=== PATIENT | female | born 1950 | race Caucasian/White ===

== ENCOUNTER → 2023-08-04 09:47 | Outpatient (REF) | payer MEDICARE, SELFPAY | LOC: MRI 3T 09:47 | PROVIDERS: ATTENDING PHYSICIAN Neurological Surgery; FAMILY PHYSICIAN Family Medicine | DX: I67.1 Cerebral aneurysm, nonruptured (principal) | CPT/HCPCS: 70544 ==

== ENCOUNTER 2023-09-17 18:48 | Emergency (ER) | payer MEDICARE, SELFPAY ==
[2023-09-17 19:26] VITALS: BP 125/88
--- NOTE | 2023-09-17 19:34 | ED.PDOC.TRB ---
ED Provider Triage
-
Patient seen by provider in Triage?: Seen in Triage
*Initial assessment performed in triage to expedite workup*
73 yo female presents after a fall. Tripped while helping her sister at a nursing facility, fell onto her R side. Was initially able to stand, now unable. Pain to R groin/lateral hip.
No obvious shortening or external rotation
Obtain hip/pelvic XR
--- NOTE | 2023-09-17 22:14 | ED.GENMED ---
History of Present Illness
<MARIAM Brunner - Last Filed: 09/17/23 22:40>
General
Chief Complaint: Musculo-Skeletal Complaint
Source: patient
Time Seen by Provider: 09/17/23 22:01
Travel History
Have you had any contact with someone who has COVID-19?: No
Do you have any symptoms of coronavirus? Fever > 100 degrees, chills, cough, shortness of breath, sore throat, loss of taste or smell, muscle aches, or headache?: No
History of Present Illness
History of Present Illness:
73 year old female with hx of osteoporosis and brain aneurysm that is being monitored who presents with R hip pain s/p trip and fall that occurred today at 1500. Pt was walking when her L foot was caught on the spokes of a wheelchair and she
tripped. She does not remember how she landed on the floor or if she hit her head because it happened very quickly. Denies back pain, neck pain, LOC, head ache, dizziness, vision changes. She was ambulatory afterwards and was able to push her sister
around in a wheelchair. She developed R hip and groin soreness when she arrived home. She has not taken anything for the pain. Currently, she denies any pain. Pain is brought on with bearing weight and lying on the R hip. Reports abrasion to R
elbow. Denies chest pain, SOB, abdominal pain, n/v/d, numbness, tingling, urinary/bowel incontinence. Reports hx of R hip surgery s/p fall years ago. She is on Fosamax which she started 5 days ago.
Past History
<MARIAM Brunner - Last Filed: 09/17/23 22:40>
Past History
ED Past Medical History: Other
Review of Systems
<MARIAM Brunner - Last Filed: 09/17/23 22:40>
Review of Systems
Allergies reviewed?: Yes
All Other Systems: ROS reviewed and negative except as documented in HPI and ROS
Constitutional: Reports no symptoms
EENT: Reports no symptoms
Respiratory: Reports no symptoms
Cardiac: Reports no symptoms
ABD/GI: Reports no symptoms
: Reports no symptoms
Musculoskeletal: Reports joint pain (R hip) and other (R groin pain)
Skin: Reports other (abrasion to R elbow)
Neurological: Reports no symptoms
Endocrine: Reports no symptoms
Hematologic/Lymphatic: Reports no symptoms
Psychiatric: Reports no symptoms
Phy Exam
<MARIAM Brunner - Last Filed: 09/17/23 22:40>
General Physical Exam
General Presentation: well appearing and no apparent distress
General age: appears stated age
General Skin: warm and dry
General Habitus: normal
General Mental: alert
General Hydration: appears well hydrated
Cardiovascular Exam
Cardiovascular Exam: regular rate/rhythm, no edema, no gallop, no murmur and normal peripheral pulses
Pulmonary Exam
Pulmonary Exam: lungs clear, no respiratory distress, no rales, no crackles, no rhonchi, no wheezing and no cough
Neurological Exam
Neurological Exam: alert, oriented x3, CN II-XII intact, no motor deficits and no sensory deficits
Musculoskeletal Exam
Musculoskeletal Exam: full ROM (R hip, R knee, neck), neuro vasc intact (RLE) and other (no neck or back tenderness to palpation, no step-offs or deformities)
Skin Exam
Skin Exam: normal color and warm/dry
Psychiatric Exam
Psychiatric Exam: normal mood/affect
Course
<MARIAM Brunner - Last Filed: 09/17/23 22:40>
Orders/Labs/Results
Orders:
Orders
09/17/23 19:33
CR Hip - RT w/wo Pel 2-3 Vw* Urgent
Comment:
Reason For Exam: fall
Include a pelvis x-ray?: Yes
Vital Signs
Initial and Last Documented VS:
Initial Vital Signs
Temp Pulse Resp BP Pulse Ox
98.1 F 73 18 125/88 99
09/17/23 19:26 09/17/23 19:26 09/17/23 19:26 09/17/23 19:26 09/17/23 19:26
Last Documented Vital Signs
Temp Pulse Resp BP Pulse Ox
98.1 F 73 18 125/88 99
09/17/23 19:26 09/17/23 19:26 09/17/23 19:26 09/17/23 19:26 09/17/23 19:26
<Bernarda Burrell MD - Last Filed: 09/17/23 23:04>
Orders/Labs/Results
Orders:
Orders
09/17/23 19:33
CR Hip - RT w/wo Pel 2-3 Vw* Urgent
Comment:
Reason For Exam: fall
Include a pelvis x-ray?: Yes
Vital Signs
Initial and Last Documented VS:
Initial Vital Signs
Temp Pulse Resp BP Pulse Ox
98.1 F 73 18 125/88 99
09/17/23 19:26 09/17/23 19:26 09/17/23 19:26 09/17/23 19:26 09/17/23 19:26
Last Documented Vital Signs
Temp Pulse Resp BP Pulse Ox
98.1 F 73 18 125/88 99
09/17/23 19:26 09/17/23 19:26 09/17/23 19:26 09/17/23 19:26 09/17/23 19:26
<MARIAM Brunner - Last Filed: 09/17/23 22:40>
MDM/Problems Addressed
Differential Diagnosis Includes:
R hip pubic fracture, R hip femur fracture
MDM/Problems Addressed:
73 year old female who presents with R hip pain s/p trip and fall that occurred at 1500 today.
Chronic conditions affecting care: Neurological disorder (brain aneurysm) and Other (osteoporosis)
<MARIAM Brunner - Last Filed: 09/17/23 22:40>
*Critical Care Note
Total Time (30-74mins, 75-104mins- exclusive of procedures): Not Applicable
ED Attending Note
<MARIAM Brunner - Last Filed: 09/17/23 22:40>
-
Portions of this chart may have been created with voice recognition software.� Occasional wrong word or��sound alike� substitutions may have occurred due to the inherent limitations of voice recognition software.
<Bernarda Burrell MD - Last Filed: 09/17/23 23:04>
ED Attending Note
Patient seen and examined by attending physician: Yes
I performed the substantive portion of visit, reviewed & personally made and approve the management plan that is documented in note by myself or JAMI.: Yes
I performed a history and physical exam of patient and discussed management with resident, I reviewed resident's note and agree with documented findings and plan of care.: Yes
ED Attending Note:
73-year-old female who had a trip and fall at approximately 2 or 3 PM today while visiting her sister, and noted thereafter that she has right hip area pain. No head strike, loss of consciousness, neck pain, numbness, tingling, chest pain,
shortness of breath, or other complaints. She did suffer a superficial abrasion to her elbow. She denies nausea or vomiting. She notes discomfort only when she stands or walks. On exam, patient awake alert well-appearing. abdomen soft and
nontender. Patient noted to ambulate here using our walker without difficulty or imbalance. Well-perfused, no swelling, no deformity noted, full range of motion of lower extremities. Patient aware of pelvic fracture, feels comfortable with plan
for discharge, p.o. pain medication, Ortho and PCP follow-up. Discussed with her reasons return to the ER.
Patient presents to the Emergency Department with right hip pain___
Number and Complexity of Problems Addressed at the Encounter
� Chronic conditions affecting care:
� Acute Exacerbation and/or Progression of Chronic Illness:
� Differential Diagnosis includes: But not limited to hip fracture, pelvic fracture, muscle strain, etc.
Amount and/or Complexity of Data to be Reviewed and Analyzed
� I performed an independent evaluation of and my interpretation is:
EKG:
CT:
Xrays: Right pubic ramus fracture
Laboratory Studies:
Other:
� Review of other/old records reveals:
� Clinical information was obtained by an independent historian: Friend who is bedside
� Prescriptions/Medications Considered but not given:
� Further testing considered but not performed:
Risk of Complications and/or Morbidity or Mortality of Patient Management
� Social determinants of health affecting care:
� Discussion with other providers (PCP, Hospitalists, Consultants, etc):
� Escalation of care including admission/observation vs risk of discharge considered:
Discharge Plan
Departure
Patient Disposition: Home (Routine Discharge)
Date of Disposition: 09/17/23
Time of Disposition: 22:53
Patient with high blood pressure during this ER visit?: Yes
Condition: Good
Discharge Problem:
Closed pelvic fracture
Instructions: Pelvic fracture, BLOOD PRESSURE
Prescriptions:
New
acetaminophen-codeine 300-30 mg tablet
1 tab PO BID PRN (Reason: Pain) Qty: 7 0RF
acetaminophen-codeine 300-30 mg tablet
1 tab PO BID PRN (Reason: Pain) Qty: 7 0RF
Referrals:
Sofya Hsu DO [Family Provider] -
Florian Lynch MD [Active] - Next open appointment
Activity Restrictions/Additional Instructions:
IF YOU DEVELOP INCREASING/NEW/PERSISTENT PAIN, NUMBNESS, TINGLING, WEAKNESS, SWELLING, OR OTHER WORRISOME SIGNS, GO TO THE ER IMMEDIATELY!!
Interventions
Interventions:
*Risk Screen - Suicide Last Done: 09/17/23 21:23
*General Assessment Last Done: 09/17/23 21:23
*Neglect/Abuse Screening Last Done: 09/17/23 21:23
ED- Fall Risk Assessment Last Done: 09/17/23 21:23
*ED COVID-19 Vaccine History Last Done: 09/17/23 21:23
ED-Musculoskeletal Assessment Last Done: 09/17/23 21:23
Discharge Date and Time
Print Language: BERMUDIAN
[2023-09-17] MEDS: TYLENOL #3 1 TABLET PO (23:22)
[2023-09-17 23:34] VITALS: BP 122/82
== END 2023-09-17 23:35 | disposition home or self-care (01) ==
LOC: EMR 18:48
PROVIDERS: EMERGENCY PHYSICIAN Emergency Medicine; FAMILY PHYSICIAN Family Medicine
DX: S32.9XXA Fracture of unspecified parts of lumbosacral spine and pelvis, initial encounter for closed fracture (principal); S50.311A Abrasion of right elbow, initial encounter; W01.0XXA Fall on same level from slipping, tripping and stumbling without subsequent striking against object, initial encounter; Y93.01 Activity, walking, marching and hiking; M81.0 Age-related osteoporosis without current pathological fracture
CPT/HCPCS: 99283; 73502

== ENCOUNTER → 2023-11-04 11:09 | Outpatient (REF) | payer MEDICARE, SELFPAY | LOC: WDC 11:09 | PROVIDERS: ATTENDING PHYSICIAN Family Medicine | DX: Z12.31 Encounter for screening mammogram for malignant neoplasm of breast (principal) | CPT/HCPCS: 77063; 77067 ==

== ENCOUNTER → 2024-01-29 11:43 | Outpatient (REF) | payer MEDICARE, SELFPAY | LOC: RCS 11:43 | PROVIDERS: ATTENDING PHYSICIAN Student in an Organized Health Care Education/Training Program; FAMILY PHYSICIAN Family Medicine | DX: Z01.818 Encounter for other preprocedural examination (principal) | CPT/HCPCS: 93005 ==

== ENCOUNTER → 2024-05-30 09:56 | Outpatient (REF) | payer MEDICARE, SELFPAY | LOC: RAD 09:56 | PROVIDERS: ATTENDING PHYSICIAN Internal Medicine Endocrinology, Diabetes & Metabolism; FAMILY PHYSICIAN Family Medicine | DX: E04.2 Nontoxic multinodular goiter (principal) | CPT/HCPCS: 76536 ==

== ENCOUNTER → 2024-10-18 15:06 | Outpatient (REF) | payer MEDICARE, SELFPAY | LOC: RCS 15:06 | PROVIDERS: ATTENDING PHYSICIAN Family Medicine | DX: I10 Essential (primary) hypertension (principal); R60.0 Localized edema; M25.552 Pain in left hip | CPT/HCPCS: 73502; 93005; 93306 ==

== ENCOUNTER → 2024-11-07 10:12 | Outpatient (REF) | payer MEDICARE, SELFPAY | LOC: RAD 10:12 | PROVIDERS: ATTENDING PHYSICIAN Family Medicine | DX: M81.0 Age-related osteoporosis without current pathological fracture (principal); Z12.31 Encounter for screening mammogram for malignant neoplasm of breast | CPT/HCPCS: 77063; 77067; 77080 ==

== ENCOUNTER 2024-12-26 13:06 | Inpatient (IN) | payer MEDICARE, SELFPAY ==
[2024-12-26] VITALS (12 sets, daily range): BP systolic 110–162; BP diastolic 50–90; BMI 22.3; BMI 22.5
--- NOTE | 2024-12-26 10:40 | ED.GENMED ---
History of Present Illness
General
Chief Complaint: Fall
Time Seen by Provider: 12/26/24 10:40
History of Present Illness
History of Present Illness:
FOCUSED PAST MEDICAL HISTORY
- No significant past medical history but does take baby aspirin
REVIEW OF OLD RECORDS
- I reviewed records, the patient had a pelvic fracture in September 2023 seen here in the ER [facility]
Note:
CHIEF COMPLAINT(S)
Left knee pain with inability to straighten and right wrist pain following a fall.
HISTORY OF PRESENT ILLNESS
The patient is a 71-year-old female who presented with left knee pain and right wrist pain following a fall. The patient reported she was walking in her neighborhood when she was startled by a dog barking, causing her to look up and step on a
walnut. This resulted in her twisting her ankle and falling. She was uncertain about which ankle twisted but confirmed the primary injury was to the left knee which she cannot straighten and is painful to the touch. The knee is swollen and exhibits
a deformity.
A Good [employer] attempted to help the patient up, but the knee locked, and she was unable to stand. The patient also mentioned a secondary concern of pain in the right wrist. She has no history of prior knee injuries. Additionally, she noticed an
abrasion on the right knee and right shoulder but denied significant pain in those areas.
The patient denies any known drug allergies. She reported being on baby aspirin for thromboembolic prophylaxis but no other specific chronic conditions affecting current care were discussed. She adamantly states moving the knee is painful and
requests minimal manipulation. The patient was administered a narcotic (Dilaudid) for pain management with plans for further imaging, including X-rays of the wrist and knee, and a CT scan for further evaluation.
PHYSICAL EXAM
- General: Well appearing but appears rather uncomfortable
- Head: No craniofacial trauma
- C-spine: No midline c-spine tenderness; normal AROM of C-spine
- Back: Normal AROM thoracolumbar spine
- HEENT: Moist oral mucosa, no blood
- Cardiovascular: No murmurs, normal heart rate, regular rhythm, No chest wall tenderness
- Pulmonary: No respiratory distress, breath sounds are clear and equal
- Abdomen: Soft with no peritoneal signs, no tenderness
- Neurologic: Excellent strength all extremities, no coordination deficits
- Psychiatric: Appropriate mental status, normal insight and judgement
- Extremities: The patient holds the left knee in near complete flexion and deformity is noted at the left knee, there is also deformity noted at the distal right forearm
- Skin: Abrasions are noted at the right shoulder and right knee however active range of motion at those locations are normal
PLAN
1. Administer IV Dilaudid for pain relief.
2. Obtain X-rays of the left knee and right wrist.
3. Secure a CT scan of the left knee to assess for possible dislocation or other injuries.
4. Consider further pain management interventions based on imaging results.
DIFFERENTIAL DIAGNOSIS
The Differential Diagnosis includes, in no particular order and is not limited to:
1. Knee dislocation
2. Fracture of the left knee
3. Right wrist fracture
4. Meniscal tear
5. Ligamentous injury (ACL/PCL tear)
6. Patellar dislocation
7. Soft tissue injury
8. Sprain of the knee
9. Hemarthrosis
10. Contusion of the knee or wrist
Disposition:
SUMMARY OF ENCOUNTER
The patient, a 71-year-old female, presented to the emergency department with left knee pain and right wrist pain following a fall. The primary injury was to the left knee, which was painful and unable to straighten. Initial examination showed a
swollen and deformed left knee with restricted range of motion. The patient also reported pain in the right wrist. She was administered IV Dilaudid for pain management. Imaging of the patients left knee revealed a patellar fracture with significant
displacement. The right wrist showed obvious deformity, which was reduced under procedural sedation. Due to her advanced age and having fractures in two extremities, I coordinated a consultation with orthopedics and discussed her care with the
hospitalist for potential admission.
DISPOSITION
Admit
ASSESSMENT
The patient has a left patellar fracture with significant displacement and a right wrist fracture, both resulting from a fall.
EMERGENCY TREATMENTS ADMINISTERED
IV Dilaudid was administered for pain relief.
MANAGEMENT OF THE PATIENTS CARE WAS DISCUSSED WITH
Orthopedics (Dr. Forrest) and hospitalist for potential admission.
PLAN
1. Admit patient to the hospital for further management.
2. Consult with orthopedics for surgical intervention or further management of the left knee patellar fracture and right wrist fracture.
3. Continue pain management with appropriate analgesics.
4. Monitor the patients recovery and provide supportive care as needed.
INDEPENDENT REVIEW OF LABS AND INTERPRETATION OF TESTS
- My independent interpretation of the imaging reveals a patellar fracture with significant displacement in the left knee.
- My independent interpretation of the right wrist shows an obvious deformity, consistent with a fracture that was reduced with procedural sedation.
MEDICATION RECONCILIATION
- Fentanyl (administered intranasally by EMS before arrival).
- Dilaudid (administered intravenously in the emergency department for pain).
MEDICAL DECISION MAKING
-Complexity of Data Reviewed: Chronic conditions affecting care [None reported] Knee dislocation, Fracture of the left knee, Right wrist fracture, Meniscal tear, Ligamentous injury (ACL/PCL tear), Patellar dislocation, Soft tissue injury, Sprain of
the knee, Hemarthrosis, Contusion of the knee or wrist.
-Data:
Category 1
Clinical information was obtained from an independent historian during and after the procedures.
Category 2
My independent interpretation of knee and wrist imaging revealed significant fractures.
Category 3
Discussion of management with orthopedics (Dr. Forrest) and hospitalist for potential hospital admission.
-Risk:
Decisions regarding diagnostic testing and procedures with associated risks were undertaken. Admission was considered due to advanced age and multiple fractures.
DIAGNOSIS
Patellar Fracture, Left Knee (S82.051A)
Wrist Fracture, Right (S62.101A)
RADIOLOGY
- X-rays which showed left patellar fracture and right distal radius/ulnar fractures. The right upper extremity fractures are angulated and displaced. Brain CT shows no bleeding
LABS
- White count 9.8, hemoglobin 13.4, sodium low at [address] Marin, he recommends patient should be admitted to medicine and he will discuss with Dr. Lynch to see if we can get her added to the OR schedule at [facility] tomorrow or possibly Thursday for management of both fractures
I discussed case with Dr. Meza
Past History
Past History
ED Past Medical History: Other
Phy Exam
Physical Exam
Physical Exam:
See HPI
Course
Orders/Labs/Results
Orders:
Orders
12/26/24 Breakfast
Regular
12/26/24 10:40
CR Knee - Left 1 Or 2 Views Urgent
Reason For Exam: trauma
CR Wrist - Right Min 3 Views Urgent
Comment:
Reason For Exam: trauma
12/26/24 10:41
CT Head W/o Iv Contrast Urgent
Comment:
Reason For Exam: trauma on baby aspirin
12/26/24 10:46
HYDROmorphone [Dilaudid] 1 mg IV NOW STA
Ondansetron Injectable [Zofran] 4 mg IV NOW STA
12/26/24 10:48
CR Femur - Left Min 2 Vw Urgent
Comment:
Reason For Exam: trauma
12/26/24 10:52
Basic Metabolic Panel Urgent
Complete Blood Count/With Diff Urgent
Serum Osmolality Urgent
Comment: ADD ON
TSH Reflex To Free T4 Urgent
Comment: ADD ON
12/26/24 12:16
Propofol [Diprivan] 20 ml .ROUTE .STK-MED
12/26/24 12:36
EKG [Electrocardiogram (*1)] Routine
Reason for Study: PreOp
12/26/24 12:37
Urinalysis Reflex To Culture Routine
Urine Osmolality Random [Osmolality, Random Urine] Stat
Urine Sodium Stat
12/26/24 12:40
Admit/Transfer Patient As Directed
Co-Sign Provider:
Level of Care: Inpatient admission
Assign to:: Medical/Surgical
Physician / Group: dia
Diagnosis: patella fracture
Reason for Hospitalization: patella fracture
Expected length of stay greater than two midnights?: Yes
ELOS- Estimated Length of Stay in days: 3
I certify the patient meets the requirements for IP care: Yes
12/26/24 12:41
Code Status As Directed
Resuscitation Status: Full Code
PRN Pain Medication Management As Directed
May give lesser potent ordered pain med per pt: Yes
preference::
Protocol:: Medication orders for pain may be administered in a
manner that supports deferring to patient preference
when the pt is:
- Requesting an ordered lesser potent pain medication.
Least to most potent pain medications are defined
as: acetaminophen < NSAID < tramadol < opioids
(morphine, oxycodone, hydromorphone).
- Requesting a lesser dose of the same medication IF
ORDERED.
- Requesting a less intrusive route of administration
if both routes are prescribed by the provider (PO <
IV).
12/26/24 12:45
0.9% Sodium Chloride 1000 ml [Nss] 1,000 ml IV 80 mls/hr
12/26/24 12:47
Knee Immobilizer Left-Treatmen ONCE
Wrist, Right 2 Views CR [CR Wrist - Right Min 2 Views] Urgent
Comment:
Reason For Exam: post reduction portable please
12/26/24 12:49
Add On- LAB Urgent
Tests Added?: serum osmolality, tsh reflex
12/26/24 13:03
ORTHOPEDIC CONSULT Routine
Consulting Provider: Marty Marin
Was physician already notified: Yes
Abnormal Lab Results
12/26/24
10:52
RBC 4.18 L 10^6/uL
(4.20-5.40)
Hct 36.8 L %
(37.0-47.0)
MCH 32.1 H pg
(27.0-31.0)
Absolute Neuts (auto) 6.8 H 10^3/uL
(1.4-6.5)
Absolute Monos (auto) 0.8 H 10^3/uL
(0.1-0.6)
Lymphocytes % 20.0 L %
(20.5-51.1)
Sodium 128 L mmol/L
(135-145)
Chloride 96 L mmol/L
(98-107)
Glucose 121 H mg/dl
(70-99)
12/26/24 10:52
12/26/24 10:52
Vital Signs
Initial and Last Documented VS:
Initial Vital Signs
Temp Pulse Resp BP Pulse Ox
36.8 C 89 16 152/65 100
12/26/24 10:29 12/26/24 10:29 12/26/24 10:29 12/26/24 10:29 12/26/24 10:29
Last Documented Vital Signs
Temp Pulse Resp BP Pulse Ox
36.6 C 70 16 128/63 98
12/26/24 12:40 12/26/24 13:00 12/26/24 13:00 12/26/24 13:00 12/26/24 13:00
Procedures
Moderate Sedation
ASA Risk Score: Class II
Chart and allergies reviewed: Yes
Consent for anesthesia obtained: Yes
Time out completed (validating right patient & procedure): Yes
Moderate Sedation Start Time(when first medication is given): 12:35
History of difficult intubation: No
Airway free of obstruction: Yes
Patient has a gag reflex: Yes
Patient is able to open mouth: Yes
Patient has no dentures: Yes
Patient has no loose teeth: Yes
Medication administered by Provider during Moderate Sedation: IV Propofol (mg)
Total dose administered: 50
Time drug administered: 12:35
Moderate Sedation Procedure End Time: 12:45
Joint/Fracture Reduction
Right Wrist:
Indication for procedure:: Displaced right distal forearm
Consent form signed: Yes
If no, reason: Emergency procedure
Joint reduced: with anesthesia sedation
Anesthesia/sedation: Moderate sedation
Injury was: closed
Further treatement: needs further treatment
Post reduction exam: stable
Capillary Refill: normal
*Pulse Oximetry
SaO2: 100
Oxygen Mode of Delivery: Room air
Patient hypoxic: no
*Critical Care Note
Total Time (30-74mins, 75-104mins- exclusive of procedures): Not Applicable
ED Attending Note
-
Portions of this chart may have been created with voice recognition software.� Occasional wrong word or��sound alike� substitutions may have occurred due to the inherent limitations of voice recognition software.
Discharge Plan
Departure
Patient Disposition: Admit
Date of Disposition: 12/26/24
Time of Disposition: 12:14
Presentation/result/management discussed w/ accepting MD/DO: Hospitalist
Discharge Problem:
Patella fracture
Interventions
Interventions:
*Risk Screen - Suicide Last Done: 12/26/24 10:36
*General Assessment Last Done: 12/26/24 10:36
*Neglect/Abuse Screening Last Done: 12/26/24 10:36
*ED- Fall Risk Assessment Last Done: 12/26/24 10:36
*ED COVID-19 Vaccine History Last Done: 12/26/24 10:36
ED-Musculoskeletal Assessment Last Done: 12/26/24 10:36
ED- Neurological Assessment Last Done: 12/26/24 10:36
ED-Skin Assessment Last Done: 12/26/24 10:36
[2024-12-26] MEDS: DILAUDID 1 MG IV (10:48)
[2024-12-26] MEDS: ZOFRAN 4 MG IV (10:48)
[2024-12-26 11:14] LABS: Hematocrit 36.8 % (37.0-47.0); Hemoglobin 13.4 g/dL (12.0-16.0); Mean Corp Hgb Conc. 36.4 g/dL (33.0-37.0); Mean Corpuscular Volume 88.0 fL (81.0-99.0); Nucleated Red Blood Cells % 0 %; Platelet Count 290 10^3/uL (130-400); Red Cell Dist. Width 12.5 % (11.5-14.5)
[2024-12-26 11:25] LABS: Blood Urea Nitrogen 12 mg/dl (7-17); Calcium 10.0 mg/dl (8.4-10.2); Carbon Dioxide 23 mmol/L (22-30); Chloride 96 mmol/L (98-107); Estimated Creatinine Clearance 67 ml/min; Glucose 121 mg/dl (70-99); Potassium 4.3 mmol/L (3.5-5.1); Sodium 128 mmol/L (135-145); eGFR > 60.00
--- NOTE | 2024-12-26 12:14 | HPS.HSE ---
Family Physician
-
Family Physician: Sofya Hsu
Chief Complaint
-
slipped and fell
History of Present Illness
74 year old with PMH for osteoporosis, carotid stenosis, HTN presented to us s/p fall. she slipped on the walnut and fell with her left leg underneath backwards. she hit her head on the curve. denied dizzy or syncope. denied fever, chills,chest
pain, sob.denied abdominal pain,n,v,d. denied dysuria or hematuria.
plan for right wrist reduction at bedside and plan to fix patella as outpatient.
Medical History
Past Medical History
Past Medical History: Reports Other
Additional Past Medical History:
mitral valve prolapse
throid nodule
goiter
diverticulosis
skin cancer
Past Surgical History: Reports Other
Additional Past Surgical History:
ORIF
Social History
Tobacco: Non-smoker
Alcohol: None
Drug: None
Family History
Family History: Not pertinent
Allergies / Home Medications
Allergies reflects when Allergies were last updated in [facility].
Home Medications with original date entered in [facility]
Allergy/Medication List:
Allergies
Allergy/AdvReac Type Severity Reaction Status Date / Time
NKA - No Known Allergies Allergy Uncoded 08/06/07 09:33
Home Medications
alendronate 70 mg tablet 70 mg PO SA 12/26/24
aspirin 81 mg tablet,delayed release 81 mg PO DAILY 12/26/24
calcium carbonate 500 mg PO BID 12/26/24
cholecalciferol (vitamin D3) 25 mcg (1,000 unit) tablet (Vitamin D3) 25 mcg PO QPM 12/26/24
magnesium 200 mg tablet 200 mg PO QPM 12/26/24
olmesartan 5 mg tablet 2.5 mg PO DAILY 12/26/24
Review of Systems
-
Constitutional: Reports No Symptoms
EENT: Reports No Symptoms
Respiratory: Reports No Symptoms
Cardiac: Reports No Symptoms
Abdomen/GI: Reports No Symptoms
: Reports No Symptoms
Musculoskeletal: Reports Other
Skin: Reports No Symptoms
Neurological: Reports No Symptoms
Endocrine: Reports No Symptoms
Hematologic/Lymphatic: Reports No Symptoms
Psych: Reports No Symptoms
Physical Exam
Vital Signs
Vital Signs
Temp Pulse Resp BP Pulse Ox
98.3 F 89 16 152/65 100
12/26/24 10:29 12/26/24 10:29 12/26/24 10:29 12/26/24 10:12/26/24 10:41
Physical Exam
General: Well Developed, Well Nourished and No Apparent Distress
HEENT: NormoCephalic, Moist mucous membranes and Atraumatic
Respiratory: Clear
Cardiac: S1/S2 and Regular Rhythm; No Murmur or Rub
GI: Soft, Non Tender, Non Distended and Normal Bowel Sounds; No Organomegaly
Rectal: Deferred by Provider
Musculoskeletal: No Clubbing, No Cyanosis and Other (left knee swollen and red)
Skin: No Rash
Neuro: AO x 3 and Nonfocal/grossly intact
Psych: Calm
Laboratory Results
-
12/26/24 10:52
12/26/24 10:52
Data Reviewed
-
Diagnostic Radiology: Report Reviewed by me
CT Scan: Report Reviewed by me
Lab Data: Labs Reviewed by me
Impression/Plan
-
#fall with patella and wrist fracture
- x ray of knee with the impression of ACUTE TRANSVERSE INTRA-ARTICULAR FRACTURE through the center of the PATELLA. Severe proximal distraction of superior patellar fracture fragment with a large 5.6 cm central gap between the 2 fracture fragments.
-head CT with the impression of No CT evidence for acute intracranial hemorrhage or scalp soft tissue hematoma. Mild white matter leukoaraiosis in both cerebral hemispheres.
-wrist x ray pending
-femur x ray with ACUTE TRANSVERSE INTRA-ARTICULAR FRACTURE through the center of the PATELLA.Severe proximal distraction of superior patellar fracture fragment with a large 5.6 cm central gap between the 2 fracture fragments.
-will keep patient NPO after MN for possible patella repair
-right wrist reduced at the bedside
-PT/OT
-tylenol, oxy and Dilaudid prn for pain
-orthopedic consulted
#essential HTN
-olmesartan continued
#hyponatremia likely hypovolemic
-normal saline continued
-urine sodium, osmolality, TSH and UA ordered
#DVT prophylaxis
-scd
#CODE status
-full code
--- NOTE | 2024-12-26 12:32 | W.PN.UPDATE ---
Addendum entered and electronically signed by Ritu Meza MD 12/26/24 15:47:
EKG with NSR. No cardiopulmonary complaints. Good exercise performance status. RCRI score 0, 0.5% risk of MACE. no additional testing indicated prior to OR tomorrow.
Original Note:
Update Note
Progress Note Update
I saw and examined the patient.
The WIRING INSPECTOR Logan's note was reviewed and I agree with the note.
Comment: 74 y/o F, HTN, presents to ER with fall slipping on walnut while walking outside. Mechanism of fall was falling forward with L knee bent backwards with out stretched R hand/R wrist. She hit the ground and had a head impact. Denies any LOC
or prodromal symptoms of SOB, CP or dizziness. Trauma workup in ER showed acute patellar fracture (with proximal distraction of superior fracture fragment) and distal R wrist fracture which ER team reduced in ER. CT head was negative.
Exam:
General: Well Developed, Well Nourished and No Apparent Distress
HEENT: Normocephalic, Moist mucous membranes and Atraumatic
Respiratory: Clear
Cardiac: S1/S2 and Regular Rhythm; No Murmur or Rub
GI: Soft, Non Tender, Non Distended and Normal Bowel Sounds; No Organomegaly
Rectal: Deferred by Provider
Musculoskeletal: No Clubbing, No Cyanosis and Other (left knee swollen and red), RUE reduced and with dressing applied
Skin: No Rash
Neuro: AO x 3 and Nonfocal/grossly intact
Psych: Calm
Assessment: S/p ER reduction of R wrist fracture; formal X-ray reports (pre and post reduction) pending. L patellar fracture with immobilizer in place. Admit inpatient. IV pain control. Orthopedics consulted - will keep NPO p MN for operative repair
(s) pending their eval. Obtain pre-op EKG. AM Labs. continue home meds. Also noted asymptomatic acute hyponatremia, will obtain urine and serum studies, TSH, AM cortisol. provide IVF. Daughter updated at bedside
[2024-12-26] MEDS: NSS 1000 IV (12:53)
--- NOTE | 2024-12-26 14:52 | CM ---
CM reviewed chart and met with pt's daughter in ED, pt was speaking with physician.
Pt lives alone, 2 story home, 2 ROSA from garage, 3 ROSA front door. Has first floor half bath, second floor Bedroom and full bath.
Independent in ADLs, personal care and ambulation at baseline.
Daughter confirms prescription coverage.
PCP: Sofya Hsu
Pharmacy: [facility]
CM will continue to follow for any discharge planning needs.
--- NOTE | 2024-12-26 15:10 | W.PN.UPDATE ---
Update Note
Progress Note Update
Full orthopedic consult dictated:
Patient unfortunately has sustained displaced right distal radius/ulnar fractures and displaced left patella fracture. She is going to require open reduction internal fixation right distal radius fracture and left patellar fracture. She has been
tentatively placed on the operating room schedule for tomorrow. Surgical locations marked and consent signed. N.p.o. after midnight and Ancef on-call to operating room.
[2024-12-26] MEDS: TYLENOL 650 MG PO ×2 (16:59→21:34)
[2024-12-26] MEDS: ROXICODONE 5 MG PO (17:00)
[2024-12-26 18:59] LABS: Urine Character Slightly Cloudy (Clear)
[2024-12-26 19:21] LABS: Urine Squamous Cell 16-20 /LPF (Few)
[2024-12-26 19:22] LABS: Urine Red Blood Cell 0-2 /HPF (0-2); Urine White Cell 0-2 /HPF (0-5)
[2024-12-26] MEDS: REFRESH EYE DROPS (PF) 1 DROPS OPHTH (21:33)
[2024-12-26] MEDS: COLACE 100 MG PO (21:35)
[2024-12-26] MEDS: SENOKOT PO (21:36)
[2024-12-26] MEDS: MELATONIN 5 MG PO (22:46)
[2024-12-27] VITALS (8 sets, daily range): BP systolic 112–142; BP diastolic 42–102
[2024-12-27] MEDS: TYLENOL PO ×2 (00:18→19:30)
[2024-12-27] MEDS: NSS 1000 IV (03:26)
[2024-12-27] MEDS: TYLENOL 650 MG PO ×4 (03:47→20:33)
[2024-12-27 06:39] LABS: Hematocrit 28.9 % (37.0-47.0); Hemoglobin 10.4 g/dL (12.0-16.0); Mean Corp Hgb Conc. 36.0 g/dL (33.0-37.0); Mean Corpuscular Volume 89.2 fL (81.0-99.0); Platelet Count 201 10^3/uL (130-400); Red Cell Dist. Width 12.5 % (11.5-14.5)
[2024-12-27 06:45] LABS: Blood Urea Nitrogen 10 mg/dl (7-17); Calcium 8.5 mg/dl (8.4-10.2); Carbon Dioxide 23 mmol/L (22-30); Chloride 103 mmol/L (98-107); Estimated Creatinine Clearance 68 ml/min; Glucose 94 mg/dl (70-99); Potassium 3.9 mmol/L (3.5-5.1); Sodium 131 mmol/L (135-145); eGFR > 60.00
[2024-12-27 07:14] LABS: Cortisol, Random 5.2 ug/dl
[2024-12-27] MEDS: ASPIR LOW (ENTERIC COATED) 81 MG PO (08:12)
[2024-12-27] MEDS: COLACE 100 MG PO ×2 (08:16→20:33)
[2024-12-27] MEDS: REFRESH EYE DROPS (PF) 1 DROPS OPHTH ×2 (08:16→20:33)
[2024-12-27] MEDS: SENOKOT PO (08:19)
--- NOTE | 2024-12-27 08:23 | W.PN.UPDATE ---
Update Note
Progress Note Update
Ms. Carpio is resting comfortably in bed this morning. She reports her pain is controlled overall. Her right arm is in a sugar tong splint, and she has a knee immobilizer to her left leg. She is scheduled for OR today for right wrist ORIF and left
patella ORIF. NPO until surgery. NWB to RUE. She may be WBAT to her LLE in the knee immobilizer. Pain control prn. Orthopedics will continue to follow along.
--- NOTE | 2024-12-27 09:11 | W.PN.HOSP.TC ---
Addendum entered and electronically signed by Brittany Rosen MD 12/27/24 14:01:
Multiple fractures: Due to a combination of trauma and pathological process due to osteoporosis.
Original Note:
Today's Communication/Plan
-
.
Assessment / Plan
Assessment / Plan
Physical Exam
General: Well Developed, Well Nourished and No Apparent Distress
HEENT: NormoCephalic, Moist mucous membranes and Atraumatic
Respiratory: Clear
Cardiac: S1/S2 and Regular Rhythm; No Murmur or Rub
GI: Soft, Non Tender, Non Distended and Normal Bowel Sounds; No Organomegaly
Rectal: Deferred by Provider
Musculoskeletal: No Clubbing, No Cyanosis and Other (left knee swollen and red)
Skin: No Rash
Neuro: AO x 3 and Nonfocal/grossly intact
Psych: Calm
# Mechanical fall with patella and wrist fracture
- x ray of knee with the impression of ACUTE TRANSVERSE INTRA-ARTICULAR FRACTURE through the center of the PATELLA. Severe proximal distraction of superior patellar fracture fragment with a large 5.6 cm central gap between the 2 fracture fragments.
-head CT with the impression of No CT evidence for acute intracranial hemorrhage or scalp soft tissue hematoma. Mild white matter leukoaraiosis in both cerebral hemispheres.
-wrist x ray pending
-femur x ray with ACUTE TRANSVERSE INTRA-ARTICULAR FRACTURE through the center of the PATELLA.Severe proximal distraction of superior patellar fracture fragment with a large 5.6 cm central gap between the 2 fracture fragments.
-will keep patient NPO for right wrist ORIF and left patella ORIF.
-right wrist reduced at the bedside with splint now
-PT/OT
-Tylenol, oxy and Dilaudid prn for pain
-orthopedic consulted
# Preop evaluation
Patient denies history of heart disease or lung disease. No anginal symptoms. She was walking the outdoor when she tripped and fell.
No history of heart failure. EKG no acute ischemic changes.
No prohibitory factor for surgery, repair of fractures outweigh the risks
#essential HTN
-olmesartan continued
#hyponatremia likely hypovolemic
-normal saline continued
-urine sodium, osmolality, TSH and UA ordered
# Acute blood loss anemia due to fractures.
#DVT prophylaxis
-scd
#CODE status
-full code
Total time spent to see the patient, examine the patient, review data and lab result, discuss treatment plan with patient, nursing staff around 55-minute
Anticipated Discharge: > 48 hours
Subjective/Interval History
-
Date of Service: December 27, 2024
No chest pain
No sob
No fevers
Objective Data
-
Labs:
Laboratory Results
12/27/24
05:42
WBC 5.5
Hgb 10.4 L D
Hct 28.9 L
Plt Count 201 D
Sodium 131 L
Potassium 3.9
Chloride 103
Carbon Dioxide 23
BUN 10
Creatinine 0.5 L
Glucose 94
Calcium 8.5 D
Vital Signs:
Vital Signs
Temp Pulse Resp BP Pulse Ox
98.6 F 62 16 122/54 95
12/26/24 23:00 12/26/24 23:00 12/26/24 23:00 12/26/24 23:00 12/26/24 23:00
I&O
12/26/24 12/27/24 12/28/24
06:59 06:59 06:59
Intake Total 1440 / 1440
Balance 1440 / 1440
--- NOTE | 2024-12-27 11:48 | CM ---
Reviewed the chart notes and spoke with the patient at the bedside. Patient is for OR today for right wrist ORIF and left patella ORIF. CM continues to be available to patient/family and is monitoring medical plan for needs at discharge.
Plan: Discharge plans will depend on the patient's progress. Patient reports lives with spouse who will be able to assist if able to d/c to home.
--- NOTE | 2024-12-27 13:55 | PN.CDI ---
CDI
- -
CDI:
Physician Documentation Request
Admit Date: 12/26/24 13:06
Dear Doctor Jessika,
Patient sustained fall. Found to have acute transverse intra-articular patella fracture.
Per H&P History of osteoporosis
Please provide further specificity regarding the diagnosis of patella fracture fracture:
Etiology
Traumatic
Pathologic due to osteoporosis
Due to a combination of trauma and a pathological process
but the trauma alone would not likely have been sufficient
to cause the fracture
Other- please specify
Use of terms such as suspected, likely, concern for, or probable (associated with a specific diagnosis that is being evaluated, monitored, or treated as if it exists) are acceptable and can be coded in the inpatient setting, when documented at the
time of discharge.
Thank you,
Gerda Light RN, BSN
CDI Specialist
tiger text
Please use your independent medical judgment in providing your response.
--- NOTE | 2024-12-27 13:59 | PN.CDI ---
CDI
- -
CDI:
Physician Documentation Request
Admit Date: 12/26/24 13:06
Dear Doctor Jessika,
Patient sustained fall. Found to have right wrist complete displaced fracture involving the distal radius and ulna.
Per H&P History of osteoporosis
Please provide further specificity regarding the diagnosis of wrist fracture fracture:
Etiology
Traumatic
Pathologic due to osteoporosis
Due to a combination of trauma and a pathological process
but the trauma alone would not likely have been sufficient
to cause the fracture
Other- please specify
Use of terms such as suspected, likely, concern for, or probable (associated with a specific diagnosis that is being evaluated, monitored, or treated as if it exists) are acceptable and can be coded in the inpatient setting, when documented at the
time of discharge.
Thank you,
Gerda Light RN, BSN
CDI Specialist
tiger text
Please use your independent medical judgment in providing your response.
--- NOTE | 2024-12-27 19:05 | PTCARENOTE ---
pt rec'd from [facility] @ 1905; post op ORIF left patella & ORIF right wrist; dressings assessed with production internship; pt AOx3; VSS; IVF per order; bed locked in lowest position; call lea within reach; care ongoing.
[2024-12-27] MEDS: NON-FORMULARY ITEM PO (19:30)
[2024-12-27] MEDS: SENOKOT 17.2 MG PO (20:33)
--- NOTE | 2024-12-27 20:39 | W.IMMPOSTOP ---
Surgical Immed Post Op Note
-
Primary Surgeon: Marty Marin MD
Assisting Surgeon:
Pre-op Diagnosis: left patella fracture
Post-op Diagnosis: left patella fracture
Procedure Performed: ORIF left patella
Anesthesia Type: general
Specimen / Cultures: none
Estimated Blood Loss: 25mL
Complications: none apparent
Operative Findings: well reduced articular surface
Tourniquet time: 112 minutes @ 250 mmHg
Implants: Nazario VariAx2 2mm small fragment plates x3, 4.0mm cannulated screws x2; #2 Fiberwire cerclage
Operative dictation #:[id number]
[2024-12-28] VITALS (7 sets, daily range): BP systolic 125–149; BP diastolic 51–67; PULSE 73–80; O2SAT 100
[2024-12-28] MEDS: ANCEF 5 IV ×2 (00:04→08:37)
[2024-12-28] MEDS: NSS 1000 IV (00:06)
[2024-12-28] MEDS: TYLENOL 650 MG PO ×2 (00:07→04:19)
--- NOTE | 2024-12-28 04:05 | DOWNTIME ---
There was a [employer] Client Shake Out Worker Downtime on 12/28/2024 from 0100 to 12/28/2024 at 0215. Downtime documentation of patient's care, including medication administrations, has been reconciled in the electronic record per guidelines. Refer to the
patient's paper chart under the miscellaneous tab to see printed paper medication records and downtime forms.
--- NOTE | 2024-12-28 07:28 | W.PN.ORTHO ---
Documented by User: Ann Marie Arroyo PA-C 12/28/24 07:34
Today's Communication / Plan
-
74 yo F POD1 ORIF right wrist and left patella performed under the direction of Dr. Lynch and Dr. Marin respectively
--Right wrist:
--NWB to RUE.
--Maintain surgical splint until outpatient follow up at 2 weeks post-op.
--Pain control prn. Ice and elevation for edema control.
--Left knee:
--WBAT to LLE in immobilizer. Maintain immobilizer at all time. No flexion of the left knee. We appreciate the assistance of PT/OT.
--Recommend ASA 325 mg daily x4 weeks for DVT ppx.
--Pain control prn. Ice and elevation for pain and edema control
--Hgb pending this AM. Continue to monitor.
--Maintain surgical dressings until 2 week post-op visit.
--Case management consult for dc planning. It sounds as though patient would like to stay with her daughter upon dc from hospital.
--Orthopedics will continue to follow along.
Assessment
.
Distal Motor Intact: Yes
Dressing:
Clean, dry and intact.
Plan
.
Surgery / Date: ORIF right wrist and left patella
DVT Prophylaxis: Aspirin
Activity:
Out of bed.
PT/OT
Subjective
.
.:
Ms. Carpio is POD1 following her right wrist ORIF performed under the direction of Dr. Lynch and left patella ORIF performed under the direction of Dr. Marin. She is resting comfortably in bed this morning, and reports her symptoms are well
controlled at present.
Vital Signs and Labs
.
Vital Signs and Labs:
Temp Pulse Resp BP Pulse Ox
97.7 F 62 16 132/57 97
12/28/24 03:00 12/28/24 03:00 12/28/24 03:00 12/28/24 03:00 12/28/24 03:00
Physical Exam
-
Directed exam of the right upper extremity reveals post-op splint in place. Expected post-operative edema of the fingers. Patient able to wiggle fingers. Sensation intact to light touch. Capillary refill <2 seconds.
Directed exam of the left lower extremity reveals knee immobilizer and post-operative dressings in place. Calf soft and nontender. Patient able to wiggle toes, plantar and dorsiflex ankle. NVID.

Documented by User: Marty Marin MD 12/28/24 07:58
Today's Communication / Plan
-
74 yo F POD1 ORIF right wrist and left patella performed under the direction of Dr. Lynch and Dr. Marin respectively
--Right wrist:
--NWB to RUE.
--Maintain surgical splint until outpatient follow up at 2 weeks post-op.
--Pain control prn. Ice and elevation for edema control.
--Left knee:
--WBAT to LLE in immobilizer. Maintain immobilizer at all time. 30 degrees flexion of the left knee with physical therapy and for ROM. We appreciate the assistance of PT/OT.
--Recommend ASA 325 mg daily x4 weeks for DVT ppx.
--Pain control prn. Ice and elevation for pain and edema control
--Hgb pending this AM. Continue to monitor.
--Maintain surgical dressings until 2 week post-op visit.
--Case management consult for dc planning. It sounds as though patient would like to stay with her daughter upon dc from hospital.
--Orthopedics will continue to follow along.
--- NOTE | 2024-12-28 08:18 | W.IMMPOSTOP ---
Surgical Immed Post Op Note
-
Late entry.
Surgery performed on 12/27/2024
Primary Surgeon: Cris
Pre-op Diagnosis: Right distal radius and ulna fracture
Post-op Diagnosis: Same
Procedure Performed: Right distal radius and ulna ORIF
Anesthesia Type: General and regional
Specimen / Cultures: None
Estimated Blood Loss: 2cc
Complications: None
Plan:
- NWB RUE through hand and wrist. But, ok to bear weight with the platform walker thru elbow and forearm
- Keep splint until follow up in 10-14 days. Subsequently, she will have a cast
[2024-12-28] MEDS: SENOKOT 17.2 MG PO (08:37)
[2024-12-28] MEDS: REFRESH EYE DROPS (PF) 1 DROPS OPHTH ×2 (08:37→19:56)
[2024-12-28] MEDS: COLACE 100 MG PO (08:37)
[2024-12-28] MEDS: ASPIRIN 325 MG PO (08:38)
[2024-12-28] MEDS: NON-FORMULARY ITEM 2.5 MG PO (08:38)
[2024-12-28 09:07] LABS: Hematocrit 26.6 % (37.0-47.0); Hemoglobin 9.7 g/dL (12.0-16.0); Mean Corp Hgb Conc. 36.5 g/dL (33.0-37.0); Mean Corpuscular Volume 91.4 fL (81.0-99.0); Platelet Count 223 10^3/uL (130-400); Red Cell Dist. Width 12.6 % (11.5-14.5)
--- NOTE | 2024-12-28 09:19 | W.PN.HOSP.TC ---
Today's Communication/Plan
-
Iron therapy
Likely dc in AM
Assessment / Plan
Assessment / Plan
Physical Exam
General: Well Developed, Well Nourished and No Apparent Distress
HEENT: NormoCephalic, Moist mucous membranes and Atraumatic
Respiratory: Clear
Cardiac: S1/S2 and Regular Rhythm; No Murmur or Rub
GI: Soft, Non Tender, Non Distended and Normal Bowel Sounds; No Organomegaly
Rectal: Deferred by Provider
Musculoskeletal: No Clubbing, No Cyanosis and Other (left knee swollen and red)
Skin: No Rash
Neuro: AO x 3 and Nonfocal/grossly intact
Psych: Calm
# Mechanical fall with patella and wrist fracture
s/p Right distal radius and ulna ORIF by Dr Lynch on 12/27
S/P ORIF left patella by DR Ferguson on 12/27
She denies significant discomfort
c/w Tylenol 1 gm TIS
-PT/OT
- oxy and Dilaudid prn for pain
-orthopedic consulted
# Acute blood loss anemia
Start Iron therapy
#essential HTN
-olmesartan continued
# Leukocytosis, reactive
Afebrile
#hyponatremia likely hypovolemic
-normal saline continued
-urine sodium, osmolality, TSH and UA ordered
# Acute blood loss anemia due to fractures.
#DVT prophylaxis
-scd
#CODE status
-full code
Total time spent to see the patient, examine the patient, review data and lab result, discuss treatment plan with patient, daughter, nursing staff around 55-minute
Anticipated Discharge: Within 24 hours
Subjective/Interval History
-
Date of Service: December 28, 2024
She feels well
No significant pain in arm or knee
No chest pain
No sob
Objective Data
-
Labs:
Laboratory Results
12/28/24
08:57
WBC 11.6 H
Hgb 9.7 L
Hct 26.6 L
Plt Count 223
PT Pending
INR Pending
APTT Pending
Sodium Pending
Potassium Pending
Chloride Pending
Carbon Dioxide Pending
BUN Pending
Creatinine Pending
Glucose Pending
Calcium Pending
Vital Signs:
Vital Signs
Temp Pulse Resp BP Pulse Ox
97.7 F 62 16 132/57 97
12/28/24 03:00 12/28/24 03:00 12/28/24 03:00 12/28/24 03:00 12/28/24 03:00
I&O
12/27/24 12/28/24 12/29/24
06:59 06:59 06:59
Intake Total 1440 / 1440 1620 / 1620
Balance 1440 / 1440 1620 / 1620
[2024-12-28 09:25] LABS: INR 1.00; PT 13.7 Sec (11.4-14.6)
[2024-12-28 09:26] LABS: APTT 25.1 Sec (23.4-35.0)
[2024-12-28 09:30] LABS: Blood Urea Nitrogen 7 mg/dl (7-17); Calcium 8.0 mg/dl (8.4-10.2); Carbon Dioxide 24 mmol/L (22-30); Chloride 102 mmol/L (98-107); Estimated Creatinine Clearance 68 ml/min; Glucose 159 mg/dl (70-99); Potassium 4.0 mmol/L (3.5-5.1); Sodium 130 mmol/L (135-145); eGFR > 60.00
[2024-12-28] MEDS: NSS IV (11:36)
[2024-12-28] MEDS: TYLENOL 1000 MG PO ×3 (11:40→23:23)
[2024-12-28] MEDS: FEOSOL 325 MG PO (11:41)
--- NOTE | 2024-12-28 14:53 | CM ---
Addendum entered by Georgina Argueta RN 12/28/24 16:01:
Referral was successfully uploaded into [facility] for [facility]. Per Rowena Forrester Liaison they do services [place].
Original Note:
Reviewed the chart notes and spoke with the patient and her daughter at the bedside. Patient wants to discharge to her daughter's home with [facility] services:
[facility] [facility]
[place] [address]
[facility]N does not service [place], permission to send referral to [facility] received. Attempted, but at this time [facility] is not functioning.
Plan: Discharge to her daughter's home with VN services. VN agency unknown at this time.
[2024-12-28] MEDS: TYLENOL PO (16:52)
[2024-12-28] MEDS: SENOKOT PO (19:57)
[2024-12-28] MEDS: COLACE PO (19:58)
[2024-12-28] MEDS: MELATONIN 5 MG PO (22:29)
--- NOTE | 2024-12-29 07:02 | W.PN.ORTHO ---
Documented by User: Ramesh Delvalle PA-C 12/29/24 07:05
Today's Communication / Plan
-
74 yo F POD2 ORIF right wrist and left patella performed under the direction of Dr. Lynch and Dr. Marin respectively
--Right wrist:
--NWB to RUE.
--Maintain surgical splint until outpatient follow up at 2 weeks post-op.
--Pain control prn. Ice and elevation ( above level of heart) for edema control.
--Left knee:
--WBAT to LLE in immobilizer. Maintain immobilizer at all time. No flexion of the left knee. We appreciate the assistance of PT/OT.
--Recommend ASA 325 mg daily x4 weeks for DVT ppx.
--Pain control prn. Ice and elevation for pain and edema control
--Hgb pending this AM. Continue to monitor.
--Maintain surgical dressings until 2 week post-op visit.
--Case management consult for dc planning. It sounds as though patient would like to stay with her daughter upon dc from hospital.
--Orthopedics to sign off.
Assessment
.
Distal Motor Intact: Yes
Dressing:
Clean, dry and intact.
Plan
.
Surgery / Date: ORIF right wrist and left patella
DVT Prophylaxis: Aspirin
Activity:
Out of bed.
PT/OT
Discharge Plan: Home w/ VN
Subjective
.
.:
Patient resting comfortably.
Vital Signs and Labs
.
Vital Signs and Labs:
Lab Results
12/28/24 08:57
12/28/24 08:57
Temp Pulse Resp BP Pulse Ox
98.2 F 69 18 125/51 100
12/28/24 23:15 12/28/24 23:15 12/28/24 23:15 12/28/24 23:15 12/28/24 23:15
PT 13.7 Sec (11.4-14.6) 12/28/24 08:57
INR 1.00 12/28/24 08:57

Documented by User: Marty Marin MD 12/29/24 08:32
Today's Communication / Plan
-
74 yo F POD2 ORIF right wrist and left patella performed under the direction of Dr. Lynch and Dr. Marin respectively
--Right wrist:
--NWB to RUE.
--Maintain surgical splint until outpatient follow up at 2 weeks post-op.
--Pain control prn. Ice and elevation ( above level of heart) for edema control.
--Left knee:
--WBAT to LLE in kinged knee brace. Maintain hinged knee brace at all time. Brace locked in extension while ambulating, can unlock for 30 degrees ROM with physical therapy. We appreciate the assistance of PT/OT.
--Recommend ASA 325 mg daily x4 weeks for DVT ppx.
--Pain control prn. Ice and elevation for pain and edema control
--Hgb pending this AM. Continue to monitor.
--Maintain surgical dressings until 2 week post-op visit.
--Case management consult for dc planning. It sounds as though patient would like to stay with her daughter upon dc from hospital.
--Orthopedics to sign off.
[2024-12-29 07:30] VITALS: BP 135/53
[2024-12-29 07:56] LABS: Hematocrit 24.6 % (37.0-47.0); Hemoglobin 8.5 g/dL (12.0-16.0); Mean Corp Hgb Conc. 34.6 g/dL (33.0-37.0); Mean Corpuscular Volume 91.8 fL (81.0-99.0); Platelet Count 230 10^3/uL (130-400); Red Cell Dist. Width 12.9 % (11.5-14.5)
[2024-12-29 08:32] LABS: Blood Urea Nitrogen 6 mg/dl (7-17); Calcium 8.4 mg/dl (8.4-10.2); Carbon Dioxide 26 mmol/L (22-30); Chloride 103 mmol/L (98-107); Estimated Creatinine Clearance 68 ml/min; Glucose 93 mg/dl (70-99); Potassium 3.9 mmol/L (3.5-5.1); Sodium 132 mmol/L (135-145); eGFR > 60.00
[2024-12-29] MEDS: SENOKOT PO (08:44)
[2024-12-29] MEDS: COLACE PO (08:44)
[2024-12-29] MEDS: ASPIRIN 325 MG PO (08:44)
[2024-12-29] MEDS: FEOSOL 325 MG PO (08:44)
[2024-12-29] MEDS: REFRESH EYE DROPS (PF) 1 DROPS OPHTH (08:45)
[2024-12-29] MEDS: NON-FORMULARY ITEM 2.5 MG PO (08:45)
[2024-12-29] MEDS: TYLENOL 1000 MG PO (08:45)
--- NOTE | 2024-12-29 08:54 | W.PN.HOSP.TC ---
Today's Communication/Plan
-
dc
Assessment / Plan
Assessment / Plan
Physical Exam
General: Well Developed, Well Nourished and No Apparent Distress
HEENT: NormoCephalic, Moist mucous membranes and Atraumatic
Respiratory: Clear
Cardiac: S1/S2 and Regular Rhythm; No Murmur or Rub
GI: Soft, Non Tender, Non Distended and Normal Bowel Sounds; No Organomegaly
Rectal: Deferred by Provider
Musculoskeletal: No Clubbing, No Cyanosis and Other (left knee swollen and red)
Skin: No Rash
Neuro: AO x 3 and Nonfocal/grossly intact
Psych: Calm
# Mechanical fall with patella and wrist fracture
s/p Right distal radius and ulna ORIF by Dr Lynch on 12/27
S/P ORIF left patella by DR Ferguson on 12/27
She denies significant discomfort
c/w Tylenol for pain, f/w pt and her daughter, agree to use Tramadol if needed
-PT/OT consulted.
- aspirin for DVT prophylaxis.
# Acute blood loss anemia
Started Iron therapy, she did not want IV Iron. Improved, advised to eat more proteins
#essential HTN
-olmesartan continued
# Leukocytosis, reactive
Afebrile
#hyponatremia likely hypovolemic
Improved, advised to eat more proteins
# Acute blood loss anemia due to fractures.
#DVT prophylaxis
-scd
#CODE status
-full code
Total discharge time spent to see the patient, examine the patient, review data and lab result, discuss discharge plan with patient, daughter, nursing staff around 65 minutes
Anticipated Discharge: Today
Subjective/Interval History
-
Date of Service: December 29, 2024
She feels well
Not dizzy
No chest pain
No sob
Pain is not significant in her surgery sites
Objective Data
-
Labs:
Laboratory Results
12/29/24
07:20
WBC 8.1
Hgb 8.5 L
Hct 24.6 L
Plt Count 230
Sodium 132 L
Potassium 3.9
Chloride 103
Carbon Dioxide 26
BUN 6 L
Creatinine 0.5 L
Glucose 93
Calcium 8.4
Vital Signs:
Vital Signs
Temp Pulse Resp BP Pulse Ox
98.2 F 69 18 125/51 100
12/28/24 23:15 12/28/24 23:15 12/28/24 23:15 12/28/24 23:15 12/28/24 23:15
I&O
12/28/24 12/29/24 12/30/24
06:59 06:59 06:59
Intake Total 1620 / 1620 960 / 960
Balance 1620 / 1620 960 / 960
--- NOTE | 2024-12-29 09:33 | CM ---
Met with patient at bedside
IMM explained & signed. In chart
spoke with Mitzy from [facility] - referral accepted in [facility]
patient to be discharged to daughter's home - Mitzy aware
[facility] [address]
[place] [address]
PLAN: home with daughter with [facility] when stable
daughter to transport
[facility] fax #: [phone]
--- NOTE | 2024-12-29 15:06 | W.DCSUMMARY ---
Discharge Summary
Discharge Data
Date of Admission: 12/26/24
Date of Discharge: 12/29/24
-
Pending Results: No
Hospital Course
74 years old female presented after she tripped and fell on the sidewalk while she was walking outdoor. Patient presented to the hospital. Imaging studies showed right distal radius and ulna fracture, left patella fracture. Scan of the head did
not show acute findings. Patient was evaluated by orthopedic. She underwent open reduction internal fixation for right wrist area and left patella. Patient was started on 325 mg of aspirin for DVT prophylax. She was noted to have acute blood
loss anemia. She was offered to get IV iron but she opted to continue with oral iron. She did not have hemodynamic stability or dizziness upon doing physical therapy. She has hyponatremia that improved, she was also advised to to eat more
proteins and follow-up with her primary care doctor to repeat the blood work. She remained hemodynamically stable. 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 Patient was discharged home with home health services in a stable condition.
Discharge Plan
-
Patient Disposition: Home with Home Care
Discharge Diagnosis/Procedures: mechanical fall: status post ORIF right wrist and left patella performed under the direction of Dr. Lynch and Dr. Marin respectively
--WBAT to LLE in immobilizer. Maintain immobilizer at all time. No flexion of the left knee. PT/OT.
--Recommend ASA 325 mg daily x4 weeks for DVT ppx.
Diet: As tolerated
Referrals:
Sofya Hsu DO [Family Provider, Family Practice] - in two to four weeks
Marty Marin MD [Active, Orthopedics] - in two weeks
Prescriptions:
New
aspirin 325 mg Tablet
325 mg PO DAILY Qty: 30 0RF
acetaminophen [Tylenol Extra Strength] 500 mg Tablet
1,000 mg PO TIDPRN PRN (Reason: mild to moderate pain) Qty: 30 0RF
ferrous sulfate [FeroSul] 325 mg (65 mg iron) Tablet
325 mg PO DAILY Qty: 30 2RF
tramadol 50 mg tablet
50 mg PO BID PRN (Reason: severe pain) Qty: 10 0RF
Continued
alendronate 70 mg tablet
70 mg PO SA
calcium carbonate 500 mg calcium (1,250 mg) Tablet
500 mg PO BID
magnesium 200 mg Tablet
200 mg PO QPM
olmesartan 5 mg tablet
2.5 mg PO DAILY
cholecalciferol (vitamin D3) [Vitamin D3] 25 mcg (1,000 unit) Tablet
25 mcg PO QPM
carboxymethylcellulose sodium [Refresh Tears] 0.5 % Drops
1 drp OPHTHALMIC (EYE) BID
Held
aspirin 81 mg Tablet,Delayed Release (Dr/Ec)
81 mg PO DAILY
Hold Instructions: Resume on 01/25/25.
Discharge Orders:
Discharge Patient (As Directed); Ordered 12/29/24
Ordered By: Brittany Rosen
Discharge Date and Time
Discharge Date/Time: 12/29/24 14:11
Print Language: IVORIAN
== END 2024-12-29 14:11 | disposition home health service (06) | DRG 511 ==
LOC: 2 SOUTH 13:06
PROVIDERS: Orthopaedic Surgery; Registered Nurse; ADMITTING PHYSICIAN Internal Medicine; ATTENDING PHYSICIAN Internal Medicine; CONSULT PHYSICIAN Student in an Organized Health Care Education/Training Program; EMERGENCY PHYSICIAN Emergency Medicine; FAMILY PHYSICIAN Family Medicine
PROC: 0QSF04Z Reposition Left Patella with Internal Fixation Device, Open Approach (ICD-10-PCS; 2024-12-27)
PROC: 0PSK04Z Reposition Right Ulna with Internal Fixation Device, Open Approach (ICD-10-PCS; 2024-12-28)
PROC: 0PSH04Z Reposition Right Radius with Internal Fixation Device, Open Approach (ICD-10-PCS; 2024-12-28)
DX: M84.431A Pathological fracture, right ulna, initial encounter for fracture (principal); D62 Acute posthemorrhagic anemia; E87.1 Hypo-osmolality and hyponatremia; M84.48XA Pathological fracture, other site, initial encounter for fracture; M84.433A Pathological fracture, right radius, initial encounter for fracture; W01.0XXA Fall on same level from slipping, tripping and stumbling without subsequent striking against object, initial encounter; S50.312A Abrasion of left elbow, initial encounter; S00.01XA Abrasion of scalp, initial encounter; S80.211A Abrasion, right knee, initial encounter; E86.1 Hypovolemia; I10 Essential (primary) hypertension; Z79.82 Long term (current) use of aspirin; Z79.83 Long term (current) use of bisphosphonates
CPT/HCPCS: 25605; 70450; 73100; 73110; 73552; 73560; 76000; 80048; 81003; 81015; 82533; 83930; 83935; 84300; 84443; 85025; 85027; 85610; 85730; 93005; 96374; 96375; 97116; 97163; 97167; 97530; 97535; 99152; 99285; J2916

== ENCOUNTER → 2025-03-06 12:38 | Outpatient (REF) | payer MEDICARE, SELFPAY | LOC: EMG 12:38 | PROVIDERS: ATTENDING PHYSICIAN Orthopaedic Surgery; FAMILY PHYSICIAN Family Medicine | DX: R20.0 Anesthesia of skin (principal); G56.91 Unspecified mononeuropathy of right upper limb | CPT/HCPCS: 95886; 95910 ==